=== PATIENT | female | born 1965 | race Caucasian/White ===

== ENCOUNTER 2021-09-23 08:43 | Inpatient (IN) | payer OTHER ==
[~2021-09-23] VITALS: Ht 160 cm; Wt 76.7 kg
--- NOTE | 2021-09-23 08:54 | NUR ---
BIBS DAUGHTER C/O RIGH SIDE LOWER LIP NUMBNESS SINCE SUNDAY. 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 ATTACHED TO MONITOR. CHANGED INTO A HOSPITAL GOWN. AWAITING MD SHI.
--- NOTE | 2021-09-23 08:56 | NUR ---
DR SANDRA AT BEDSIDE
--- NOTE | 2021-09-23 09:11 | NUR ---
IV ESTABLISHED L AC 18G. LABS DRAWN AND COLLETCED AT BEDSIDE. CONVERTED TO SALINE LOCK
--- NOTE | 2021-09-23 09:13 | NUR ---
COVID TEST COLLECTED AND LAURA T
[2021-09-23] MEDS ORDERED: IOHEXOL-350 100 ML VIAL IV ONE (09:17)
[2021-09-23] MEDS ORDERED: IV NS 0.9% 250 ML IV ONE (09:18)
--- NOTE | 2021-09-23 09:27 | NUR ---
PT UNALBLE TO PROVIDE URINE AT THIS TIME
[2021-09-23 09:43] LABS: ALANINE AMINOTRANSFERASE 23 U/L (12-78); ALBUMIN 3.5 g/dL (3.4-5.0); ALKALINE PHOSPHATASE 136 U/L (46-116); ASPARTATE AMINOTRANSFERASE 26 U/L (15-37); BILIRUBIN,DIRECT 0.1 mg/dL (0.0-0.2); BILIRUBIN,TOTAL 0.6 mg/dL (0.2-1.0); CALCIUM, SERUM 9.2 mg/dL (8.5-10.1); CARBON DIOXIDE 25 mmol/L (21-32); CHLORIDE 97 mmol/L (98-107); CREATININE 0.5 mg/dL (0.6-1.3); POTASSIUM 4.4 mmol/L (3.5-5.1); SODIUM SERUM 129 mmol/L (136-145); TOTAL PROTEIN, SERUM 8.2 g/dL (6.4-8.2); UREA NITROGEN, BLOOD 14 mg/dL (7-18)
[2021-09-23 09:51] LABS: GLUCOSE 386 mg/dL (74-106)
--- NOTE | 2021-09-23 09:52 | NUR ---
PT TAKEN TO CT VIA NAYELY
--- NOTE | 2021-09-23 09:53 | NUR ---
WHEELED OUT VIA MACI FOR CTA
--- NOTE | 2021-09-23 10:15 | NUR ---
PATIENT WHEELED BACK TO ROOM VIA GURNEY FROM CT SCAN
--- NOTE | 2021-09-23 10:19 | NUR ---
URINE COLLECTED AND SENT TO LAB
--- NOTE | 2021-09-23 10:26 | NUR ---
TAJ CRUZ FOR [facility] TAJ CRUZ CALLED ON SETTING UP PEER TO PEER FOR TRANSFER TO [facility]. WILL CALL BACK FOR PEER TO PEER.
[2021-09-23 10:36] LABS: BASOPHILS % (AUTO) 0.3 % (0.0-2.0); EOSINOPHILS % (AUTO) 0.7 % (0.0-6.0); HEMATOCRIT 40 % (33-45); HEMOGLOBIN 13.4 g/dL (11.5-14.8); LYMPHOCYTES # (AUTO) 2.1 K/uL (0.8-4.8); LYMPHOCYTES % (AUTO) 25.7 % (20.0-44.0); MEAN CORPUSCULAR HGB CONC 34 g/dl (31.0-36.0); MEAN CORPUSCULAR VOLUME 86 fL (82-100); MONOCYTES # (AUTO) 0.5 K/uL (0.1-1.30); MONOCYTES % (AUTO) 6.2 % (2.0-12.0); NEUTROPHILS # (AUTO) 5.5 K/uL (1.8-8.9); NEUTROPHILS % (AUTO) 67.1 % (43.0-81.0); PLATELET COUNT (AUTO) 230 K/uL (150-450); RED BLOOD CELL COUNT(AUTO) 4.63 MIL/uL (4.0-5.2); WHITE BLOOD COUNT (AUTO) 8.1 K/uL (4.3-11.0)
--- NOTE | 2021-09-23 10:55 | NUR ---
pagemaverick finch for md to [phone]
[2021-09-23] MEDS ORDERED: AMLO-213 PO (11:26)
[2021-09-23] MEDS ORDERED: INSU100I26 SQ (11:26)
[2021-09-23] MEDS ORDERED: ASPIRIN 81 MG TAB.CHEW PO ONE (11:30)
[2021-09-23] MEDS ORDERED: ASPIRIN 81 MG TAB.CHEW ONE (11:31)
--- NOTE | 2021-09-23 12:34 | NUR ---
REPORT GIVEN TO ZOHREH BROWN OF TELE UNIT
[2021-09-23] MEDS ORDERED: ONDANSETRON HCL/PF 4 MG/2 ML VIAL IVP PRN (13:30)
[2021-09-23] MEDS ORDERED: DEXTROSE 50%-WATER 50 ML DISP.SYRIN IV PRN (13:30)
[2021-09-23] MEDS ORDERED: MAG HYDROX/AL HYDROX/SIMETH 30 ML UDC PO PRN (13:30)
[2021-09-23] MEDS ORDERED: Z GUARD REMEDY 4 OZ OINT TP PRN (13:30)
[2021-09-23] MEDS ORDERED: MAGNESIUM HYDROXIDE 30 ML UDC PO PRN (13:30)
[2021-09-23] MEDS ORDERED: *INSULIN REGULAR(HUMULIN R)HUM 100 UNIT/ML VIAL SQ PRN (13:30)
--- NOTE | 2021-09-23 13:30 | NUR ---
RESOURCE ANALYST ADMITTING NOTES ADMITTED THIS 56 Y/O FEMALE PATIENT @1300 FROM EMERGENCY ROOM, TRANSPORTED VIA GURNEY, ACCOMPANIED BY ER NURSE VINNIE. PATIENT IS ALERT AND ORIENTED X4, VERBALLY RESPONSIVE, NO SIGNS OF APPARENT DISTRESS. DENIES ANY PAIN OR DISCOMFORT. ON ROOM AIR TOLERATING WELL, SPO2 @98%, NO SOB NOTED, BREATHING EVEN AND UNLABORED. NOTED WITH IV ACCESS ON RAC #18G, AND LHAND #20G, INTACT AND PATENT, FLUSHES WELL. PATIENT PLACED ON STRIPPER BLACK AND WHITE SHOWING NSR @85. ABDOMEN SOFT. NON-TENDER, (+) BOWEL SOUNDS ON ALL QUADRANTS, LUNGS CLEAR TO AUSCULTATION. SKIN GENERALLY INTACT. ORIENTED PATIENT TO ROOM. SAFETY MEASURE PROVIDED. BED LOCKED AND IN LOWEST POSITION, SR UP X2, CALL LIGHT AND TABLE WITHIN EASY REACH. WILL CONTINUE TO MONITOR.
[2021-09-23] MEDS: ENOXAPARIN SODIUM 40 MG/0.4 ML DISP.SYRIN SQ SCH (14:10)
--- NOTE | 2021-09-23 14:30 | NUR ---
SS Consult: SS consult for stroke. Pt. Is a 56-year-old female. Pt. demonstrates adequate insight to the reason for hospitalization, she was brought to hospital by daughter [Taya] due to left side numbness. Pt. was oriented x3, alert, and cooperative. During interview, pt. was capable of following directions, made appropriate eye-contact, and appeared well-groomed. Pt.s speech was at a normal rate and pt.s mood was elevated. TL explored pt.s hx of mental health and substance abuse. Pt. reported no hx of mental health, substance abuse, suicidal or homicidal ideation. Pt. denies auditory hallucinations, visual hallucinations, paranoia, or delusions. SW explored pt.s living situation. Per pt., she lives with her daughter Tammie [[address] [place] [address]]. Pt. reports having adequate support from her family. SW explored pt.s financial status. Per pt., she is not working, and her daughters take care of her. TL performed the PHQ9 on pt. and she scored a 3, there is no need for a psych. Consult. Plan: TL provided available resources and pt. accepted. Once discharge, per pt., she will return home [[address] [place] [address]]. Resources Provided: Stroke [facility]
[2021-09-23 16:00] VITALS: BP 150/69
[2021-09-23] MEDS: INSULIN REGULAR, HUMAN 100 UNIT/ML 3 ML VIAL SQ PRN ×2 (16:39→22:20)
[2021-09-23] MEDS: BLOOD SUGAR DIAGNOSTIC 1 EACH STRIP IN SCH ×2 (16:39→22:16)
[2021-09-23] MEDS ORDERED: BLOOD SUGAR DIAGNOSTIC 1 EACH STRIP VI SCH (17:30)
[2021-09-23] MEDS ORDERED: BLOOD SUGAR DIAGNOSTIC 1 EACH STRIP IN SCH (18:00)
--- NOTE | 2021-09-23 18:52 | NUR ---
FACILITIES ENGINEER CLOSING NOTES PATIENT IN BED AWAKE, NO SIGNS OF ACUTE DISTRESS NOTED. REMAINS ON ROOOM AIR, TOLEARTED WELL, SPO2 @98%. ON TELE MONITOR SHOWING NORMAL SINUS RHYTHM, HR @73. IV ACCESS ON RAC #18G AND LEFT HAND #20G INTACT AND PATENT, SALINE LOCKED. SAFETY MEASURES MAINTAINED. BED LOCKED AND IN LOWEST POSITION, SR UP X2, CALL LIGHT PLACED WITHIN EASY REACH. WILL ENDORSE TO NEXT SHIFT.
--- NOTE | 2021-09-23 19:46 | NUR ---
MANAGER MEMBERSHIP OPENING RECEIVED PATIENT IN BED. A/OX4. NO S/S OF APPARENT DISTRESS ON ROOM AIR. DENIES PAIN. SON ON BEDSIDE. TELE MONITOR READING SR. NO FLUIDS RUNNING AT THIS TIME. SAFETY IN PLACE. WILL CONTINUE TO MONITOR.
[2021-09-23] MEDS: INSULIN GLARGINE, 100 UNIT/ML CARTRIDGE SQ SCH (22:18)
[2021-09-24] MEDS: ACETAMINOPHEN 325 MG TABLET PO PRN ×2 (00:14→21:16)
--- NOTE | 2021-09-24 00:28 | NUR ---
BLOOD BANK LABORATORY TECHNICIAN NOTE PATIENT INSULIN WAS SCANNED FOR THE AC INSTEAD OF HS. GIVEN 6 UNITS INSTEAD OF 4. INTERVENED RIGHT AWAY, REASSESSED BLOOD SUGAR AND IT'S NOW 178. PATIENT GIVEN SNACKS WELL-- PATIENT REQUESTS TAHMINA. CHARGE NURSE AWARE. WILL CONTINUE TO MONITOR.
[2021-09-24] MEDS: BLOOD SUGAR DIAGNOSTIC 1 EACH STRIP IN SCH ×4 (06:31→21:38)
[2021-09-24] MEDS: INSULIN REGULAR, HUMAN 100 UNIT/ML 3 ML VIAL SQ PRN ×3 (06:33→17:14)
[2021-09-24 06:47] LABS: BASOPHILS % (AUTO) 0.5 % (0.0-2.0); EOSINOPHILS % (AUTO) 1.6 % (0.0-6.0); HEMATOCRIT 37 % (33-45); HEMOGLOBIN 12.5 g/dL (11.5-14.8); LYMPHOCYTES # (AUTO) 2.6 K/uL (0.8-4.8); LYMPHOCYTES % (AUTO) 37.9 % (20.0-44.0); MEAN CORPUSCULAR HGB CONC 34 g/dl (31.0-36.0); MEAN CORPUSCULAR VOLUME 85 fL (82-100); MONOCYTES # (AUTO) 0.6 K/uL (0.1-1.30); MONOCYTES % (AUTO) 9.3 % (2.0-12.0); NEUTROPHILS # (AUTO) 3.5 K/uL (1.8-8.9); NEUTROPHILS % (AUTO) 50.7 % (43.0-81.0); PLATELET COUNT (AUTO) 233 K/uL (150-450); WHITE BLOOD COUNT (AUTO) 6.8 K/uL (4.3-11.0)
--- NOTE | 2021-09-24 07:03 | NUR ---
PLASTICS WORKER CLOSING NOTE PATIENT IN BED WITH EYES CLOSED, EASY TO AROUSE. A/OX4. NO S/S OF APPARENT DISTRESS ON ROOM AIR. DENIES PAIN. TELE MONITOR READING SR 78 BPM. ALL NEEDS ATTENDED. ALL SCHEDULED MEDICATIONS ADMINISTERED. SAFETY IN PLACE. NO SIGNIFICANT CHANGE SINCE LAST SHIFT. WILL ENDORSE TO MORNING SHIFT RN FOR CONTINUITY OF CARE.
[2021-09-24 07:28] LABS: CALCIUM, SERUM 8.4 mg/dL (8.5-10.1); CREATININE 0.6 mg/dL (0.6-1.3); MAGNESIUM 1.8 mg/dL (1.8-2.4); POTASSIUM 3.5 mmol/L (3.5-5.1)
--- NOTE | 2021-09-24 07:36 | NUR ---
RN OPENING NOTES PATIENT AWAKE IN BED RESTING, A/O X4. NO S/S OF PAIN NOTED AT THIS TIME. PATIENT ON ROOM AIR, NO DISTRESS OR SHORTNESS OF BREATH. IV ACCESS L HAND #20G INTACT, PATENT AND FLUSHING WELL. PATIENT HAS AN EXTERNAL ENTRY ANALYST CURRENT READING OF S.R. AND HR OF 71. FALL AND SAFETY MEASURES IN PLACE, BED ALARM ON, BED IN LOW AND LOCK POSITION, CALL LIGHT AND TABLE WITHIN EASY REACH, SIDE RAILS UP X2. WILL CONTINUE TO MONITOR.
[2021-09-24 08:00] VITALS: BP 126/72
[2021-09-24] MEDS: AMLODIPINE BESYLATE 10 MG TABLET PO SCH (08:29)
[2021-09-24] MEDS: ASPIRIN EC 81 MG TABLET.DR PO SCH (08:29)
[2021-09-24] MEDS: ENOXAPARIN SODIUM 40 MG/0.4 ML DISP.SYRIN SQ SCH (08:30)
[2021-09-24] MEDS ORDERED: ASPIRIN EC 325 MG TABLET.DR PO SCH (09:00)
[2021-09-24 12:00] VITALS: BP 122/79
[2021-09-24 16:00] VITALS: BP 123/56
--- NOTE | 2021-09-24 18:43 | NUR ---
RN CLOSING NOTES PATIENT AWAKE IN BED RESTING, A/O X4. NO S/S OF PAIN NOTED AT THIS TIME. PATIENT ON ROOM AIR, NO DISTRESS OR SHORTNESS OF BREATH. IV ACCESS L HAND #20G INTACT, PATENT AND FLUSHING WELL. PATIENT HAS AN EXTERNAL PACKAGER HEAD CURRENT READING OF S.R. AND HR OF 80. FALL AND SAFETY MEASURES IN PLACE, BED ALARM ON, BED IN LOW AND LOCK POSITION, CALL LIGHT AND TABLE WITHIN EASY REACH, SIDE RAILS UP X2. WILL ENDORSE TO RAMP JOCKEY.
--- NOTE | 2021-09-24 19:10 | NUR ---
RN NOTES: RECEIVED AWAKE ON BED, A/OX4, ARABIC SPEAKING, DAUGHTER VISITED HER, PRESENT AT BED SIDE UPON ENDORSEMENT, SHE VERBALIZED SHE WANT SLEEPING PILL, OUTGOING NURSE EXPLAINED TO HER PER DOCTOR WE NEED TO LIMIT SEDATING MEDS, SHE UNDERSTAND, SHE REQUEST FOR TYLENOL, NOT NOW LATER ON. --ORIENTED TO UNIT AND STAFF, ON TELE MONITOR SR- RATE =82, NO PAIN OR DISCOMFORT, ABLE TO AMBULATE, G#26 INTACT, FALL,SAFETY PRECAUTION OBSERVED, KEPT CALL LIGHT WITHIN EASY REACH.INSTRUCT TO CALL FOR ASSISTANCE.
--- NOTE | 2021-09-24 19:58 | NUR ---
RN NOTES: CALL FOR ASSISTANCE, ASSISTED GOING TO THE BATHROOM, STABLE GAIT, PLEASANT MOOD, COMMUNICATING IN BHUTAN[place].
[2021-09-24 20:00] VITALS: BP 129/67
--- NOTE | 2021-09-24 21:16 | NUR ---
RN NOTES: --COMPLAINED OF MILD GENERALIZED BODYACHE, REQUEST FOR TYLENOL PRN, GIVEN. --BLOOD SUGAR CHECK= 298, LANTUS AND SLIDING SCALE GIVEN ORDERED.
[2021-09-24] MEDS: INSULIN GLARGINE, 100 UNIT/ML CARTRIDGE SQ SCH (21:31)
[2021-09-24] MEDS ORDERED: ATORVASTATIN 10 MG TABLET PO SCH (22:00)
--- NOTE | 2021-09-24 22:59 | NUR ---
RN NOTES: -AWAKE, TALKING TO TELEPHONE WITH FAMILY, GIVEN SNACKS,EATING WHILE WATCHING TV.
[2021-09-25] VITALS: BP 151/76
[2021-09-25 04:00] VITALS: BP 133/66
[2021-09-25] MEDS: BLOOD SUGAR DIAGNOSTIC 1 EACH STRIP IN SCH ×2 (06:36→11:45)
[2021-09-25] MEDS: INSULIN REGULAR, HUMAN 100 UNIT/ML 3 ML VIAL SQ PRN ×2 (06:39→11:47)
--- NOTE | 2021-09-25 06:48 | NUR ---
RN NOTES: BLOOD SUGAR CHECK 295, INSULIN GIVEN PER SCALE, CONTINUE TO MONITOR FOR SIGN OF HYPER/HYPOGLYCEMIA.
--- NOTE | 2021-09-25 07:20 | NUR ---
RN NOTES: ASLEEP AT SHORT INTERVALS, NO COMPLAINTS, REMAIN IN SR RATE-73, NO LABS THIS MORNING, NO FACIAL DEVIATION NOTED, KEPT MONITORED.ON CLOSE WATCH, CALL LIHGT KEPT WITHIN EASY REACH.
--- NOTE | 2021-09-25 07:31 | NUR ---
RN OPENING NOTES PATIENT AWAKE IN BED RESTING, A/O X4. NO S/S OF PAIN NOTED AT THIS TIME. PATIENT ON ROOM AIR, NO DISTRESS OR SHORTNESS OF BREATH. IV ACCESS L HAND #20G INTACT, PATENT AND FLUSHING WELL. PATIENT HAS AN EXTERNAL DOZER OPERATOR CURRENT READING OF S.R. AND HR OF 82. FALL AND SAFETY MEASURES IN PLACE, BED ALARM ON, BED IN LOW AND LOCK POSITION, CALL LIGHT AND TABLE WITHIN EASY REACH, SIDE RAILS UP X2. WILL CONTINUE TO MONITOR.
[2021-09-25 08:42] VITALS: BP 135/79
[2021-09-25] MEDS: ASPIRIN EC 81 MG TABLET.DR PO SCH (08:42)
[2021-09-25] MEDS: AMLODIPINE BESYLATE 10 MG TABLET PO SCH (08:43)
[2021-09-25] MEDS: ENOXAPARIN SODIUM 40 MG/0.4 ML DISP.SYRIN SQ SCH (08:43)
[2021-09-25] MEDS ORDERED: ATOR10TA PO (10:14)
[2021-09-25] MEDS ORDERED: Aspirin Ec PO (10:14)
[2021-09-25 12:33] VITALS: BP 160/81
--- NOTE | 2021-09-25 13:00 | NUR ---
MEDICAL SECRETARY RECEPTIONIST NOTE PATIENT DISCHARGE IN STABLE MEDICAL CONDITION. A/O X4. V/S TAKEN, STABLE AND RECORDED. NO IV ACCESS. SKIN ASSESSMENT DONE, SKIN INTACT. NAME ARM BAND REMOVED. ALL BELONGINGS CHECKED AND SIGNED. HEALTH TEACHING AND DISCHARGE INSTRUCTIONS GIVEN TO PATIENT AND FAMILY, THEY VERBALIZED UNDERSTANDING. PATIENT LEFT UNIT AMBULATING WITH NO SIGNS OF DISTRESS, ACCOMPANIED BY RN TO THE LOBBY. PATIENT LEFT HOSPITAL WITH FAMILY. CHARGE NURSE AWARE OF DISCHARGED.
== END 2021-09-25 13:00 | disposition home or self-care (01) | DRG 45 ==
LOC: ER 08:48 → TELE 12:29
PROVIDERS: ADMIT Internal Medicine; ATTEND Internal Medicine
DX: I63.9 Cerebral infarction, unspecified (principal); E22.2 Syndrome of inappropriate secretion of antidiuretic hormone; E11.40 Type 2 diabetes mellitus with diabetic neuropathy, unspecified; I16.0 Hypertensive urgency; Z20.822 Contact with and (suspected) exposure to COVID-19; E78.5 Hyperlipidemia, unspecified; I10 Essential (primary) hypertension; E11.65 Type 2 diabetes mellitus with hyperglycemia; Z79.4 Long term (current) use of insulin; Z79.899 Other long term (current) drug therapy; E66.9 Obesity, unspecified; Z91.14 Patient's other noncompliance with medication regimen
CPT/HCPCS: 36415; 70450-TC; 70496-TC; 70498-TC; 71045-TC; 80048-TC; 80061-TC; 80076-TC; 82962-TC; 83735-TC; 84100-TC; 84484-TC; 85025-TC; 85730-TC; 87081-TC; 93307-TC; 93880-TC; 97116-TC; 97530-TC; C9803; G0378; J1650; J1815; J7050; Q9967

== ENCOUNTER 2022-10-21 20:22 | Emergency (ER) | payer OTHER ==
[~2022-10-21] VITALS: Ht 160 cm; Wt 81.6 kg
[~2022-10-21 20:22] MED LIST: AMLO-213 PO; ATOR10TA PO; Aspirin Ec PO; INSU100I26 SQ
[2022-10-21] MEDS ORDERED: IV NS 0.9% 1,000 ML IV ONE (21:30)
[2022-10-21] MEDS ORDERED: LABETALOL HCL IV 100MG VIAL IV ONE (21:30)
[2022-10-21] MEDS ORDERED: LABETALOL HCL IV 100MG VIAL ONE (21:32)
[2022-10-21 21:54] LABS: CALCIUM, SERUM 8.4 mg/dL (8.5-10.1); CREATININE 0.8 mg/dL (0.6-1.3); POTASSIUM 3.6 mmol/L (3.5-5.1)
--- NOTE | 2022-10-21 21:57 | NUR ---
PT IN ROOM 6 BREATHING IS LABORED O2SAT 99% PUT ON 2L FOR COMFORT COMPLAINING OF PAIN DURING INSPIRATION. CONNECTED TO BEDSIDE MONITOR DAUGHTER AT BEDSIDE.
[2022-10-21 22:22] LABS: BASOPHILS % (AUTO) 0.4 % (0.0-2.0); EOSINOPHILS % (AUTO) 1.1 % (0.0-6.0); HEMATOCRIT 34 % (33-45); HEMOGLOBIN 11.4 g/dL (11.5-14.8); LYMPHOCYTES # (AUTO) 1.7 K/uL (0.8-4.8); LYMPHOCYTES % (AUTO) 22.5 % (20.0-44.0); MEAN CORPUSCULAR HGB CONC 34 g/dl (31.0-36.0); MEAN CORPUSCULAR VOLUME 84 fL (82-100); MONOCYTES % (AUTO) 12.9 % (2.0-12.0); NEUTROPHILS # (AUTO) 4.7 K/uL (1.8-8.9); NEUTROPHILS % (AUTO) 63.1 % (43.0-81.0); PLATELET COUNT (AUTO) 232 K/uL (150-450); RED BLOOD CELL COUNT(AUTO) 4.06 MIL/uL (4.0-5.2); WHITE BLOOD COUNT (AUTO) 7.5 K/uL (4.3-11.0)
[2022-10-21] MEDS ORDERED: AMOX-430 PO (22:30)
[2022-10-21] MEDS ORDERED: AZIT500T PO (22:30)
[2022-10-21] MEDS ORDERED: BENZ-13 PO (22:30)
[2022-10-21 22:56] VITALS: BP 175/86
== END 2022-10-21 22:40 | disposition home or self-care (01) ==
LOC: ER 20:28
DX: J40 Bronchitis, not specified as acute or chronic (principal); I10 Essential (primary) hypertension; E11.9 Type 2 diabetes mellitus without complications; Z79.899 Other long term (current) drug therapy
CPT/HCPCS: 99284; 96374; 71045; 96361; 85025; 80048; 36415; J3490; J7030